=== PATIENT | male | born 1950 | race Caucasian/White ===

== ENCOUNTER → 2017-07-06 | Outpatient (CLI) | DX: M47.12 Other spondylosis with myelopathy, cervical region (principal) ==

== ENCOUNTER 2017-07-07 05:49 | Observation (INO) | payer OTHER ==
[~2017-07-07] VITALS: Ht 177.8 cm; Wt 73.9 kg
[~2017-07-07 05:49] MED LIST: AMBI10TA PO; ASPI1TAB57 PO; CYCL10TA PO; FENO54TA PO; FINA5TAB2 PO; GABA300C5 PO; HYDR-3583 PO; LISI20TA3 PO; LOVA40TA PO; MULT-65 PO; NAPR250T4 PO; OMEP20TA93 PO
[2017-07-07] MEDS ORDERED: LACTATED RINGER'S 1000 ML IV PRN (06:30)
[2017-07-07] MEDS ORDERED: POVIDONE IODINE 5% (ANTISEPSIS KIT) 4 APPLICATIONS EACH NARE PRN (06:30)
[2017-07-07] MEDS ORDERED: CHLORHEXIDINE GLUCONATE 2 % 1 PACK (2 CLOTHS) TOPICAL PRN (06:30)
[2017-07-07] MEDS ORDERED: METOPROLOL TARTRATE 25 MG TAB PO PRN (06:30)
[2017-07-07] MEDS ORDERED: SODIUM CHLORID 0.9% 500 ML IV PRN (06:30)
[2017-07-07] MEDS ORDERED: VANCOMYCIN 1,000 MG/NS 250 ML IV SCH ×2 (06:30)
[2017-07-07] MEDS ORDERED: DEXMEDETOMIDINE HCL 200 MCG/2 ML VIAL ONE (06:53)
[2017-07-07] MEDS ORDERED: ACETAMINOPHEN 1000 MG/100 ML 100 ML IV ONE (06:53)
[2017-07-07] MEDS ORDERED: HYDROmorphone HCL PF 2 MG/ML VIAL ONE (06:53)
[2017-07-07] MEDS ORDERED: KETAMINE HCL 500 MG/10 ML VIAL ONE (06:54)
[2017-07-07] MEDS ORDERED: STERILE WATER FOR INJECTION 20 ML VIAL ONE (06:54)
[2017-07-07] MEDS ORDERED: VANCOMYCIN HCL 1000 MG VIAL ONE (06:54)
[2017-07-07] MEDS ORDERED: GELFOAM SIZE 100 ONE (06:55)
[2017-07-07] MEDS ORDERED: THROMBIN (TOPICAL) 5,000 UNIT VIAL ONE ×2 (06:55→08:08)
[2017-07-07] MEDS ORDERED: BUPIVACAINE/EPINEPHRINE 0.5% PF 10 ML VIAL ONE (06:55)
[2017-07-07] MEDS ORDERED: SODIUM CHLORIDE 0.9% INJ 100 ML ONE (06:58)
[2017-07-07] MEDS ORDERED: PROPOFOL 500 MG/50 ML INJ 200 ML ONE (07:12)
[2017-07-07] MEDS ORDERED: DEXAMETHASONE SOD PHOS 20 MG/5 ML VIAL ONE (09:29)
[2017-07-07] MEDS ORDERED: DEXAMETHASONE SOD PHOS 4 MG/ML VIAL ONE (09:31)
[2017-07-07] MEDS ORDERED: SODIUM CHLOR 0.9% 1000 ML INJ 1,000 ML IV ONE (12:00)
[2017-07-07] MEDS ORDERED: SODIUM CHLOR 0.9% 250 ML INJ 500 ML IV ONE (12:00)
[2017-07-07] MEDS ORDERED: PROPOFOL 200 MG/20 ML AMP IV ONE (12:00)
[2017-07-07] MEDS ORDERED: SUCCINYLCHOLINE CHLORIDE 100 MG/5 ML SYRINGE IV PUSH ONE (12:00)
[2017-07-07] MEDS ORDERED: PHENYLEPH/NS 1000 MCG/10 ML SYR IV ONE (12:00)
[2017-07-07] MEDS ORDERED: PHENYLEPHRINE HCL 10 MG/ML VIAL IV ONE (12:00)
[2017-07-07] MEDS ORDERED: DEXAMETHASONE SOD PHOS 4 MG/ML VIAL IV ONE (12:00)
[2017-07-07] MEDS ORDERED: ONDANSETRON HCL 4 MG/2 ML VIAL IV PUSH ONE (12:00)
[2017-07-07] MEDS ORDERED: LIDOCAINE HCL 1% PF 5 ML SYRINGE OTHER ONE (12:00)
[2017-07-07] MEDS ORDERED: DO NOT ADM ANY ANTICOAGULANT DRUGS PRN (12:37)
[2017-07-07] MEDS ORDERED: ALUMINUM/MAGNESIUM/SIMETH 30 ML CUP PO PRN (12:45)
[2017-07-07] MEDS ORDERED: SODIUM CHLORIDE 0.9% FLUSH 10 ML FLUSH IV FLUSH PRN (12:45)
[2017-07-07] MEDS ORDERED: MIDAZOLAM HCL 2 MG/2 ML VIAL ONE (12:53)
--- NOTE | 2017-07-07 12:54 | PD.OP ---
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 Sequential compression devices were placed in supine position on a Mt table and all pressure points adequately padded. The head secured in a donut and anterior cervical region then shaved and prepped with Chloraprep and sterilely draped with Ioban along with the usual sterile draping. A transverse skin incision on the left side of the neck was then made after infiltrating the skin with 0.5% Marcaine with epinephrine solution extending down through the platysma. At the anterior border of the sternocleidomastoid further dissection was undertaken developing a plane between the carotid sheath laterally and the trachea esophagus medially. The prevertebral fascia was exposed and dissected out. The medial attachments of the longus colli muscles were detached and a self-retaining retractor used for exposure. There was significant prevertebral scar tissue noticed from the previous anterior cervical surgeries. The C6-7 disc space was localized with a marker in the disc space and using lateral fluoroscopy. Latty distraction screws 14 mm length were placed one in the C6 and one in the C7 body interbody distraction and exposure. There was significant disc degeneration with disc height collapse and anterior osteophytes noted at the C6- 7 level and the osteophytes were resected with a Leksell and annulus incised with a 15 blade and further dissection undertaken using microtechnique with microscope magnification. Diskectomy was undertaken with pituitaries and the endplates were also decorticated with curettes and drill bit. And more posteriorly there was disk osteophyte complex compressing the thecal sac along with a significant uncovertebral joint hypertrophy with foraminal stenosis which was decompressed along with removal of the posterior longitudinal ligaments at both levels. The foramen was decompressed bilaterally using a Kerrison's and palpation with a nerve hook, the exiting nerve roots were felt to be free. The area was then copiously irrigated. I then placed a Peek cage packed with local autograft bone at the C6-7 interspace under fluoroscopy guidance. Latty distraction pins were removed and the holes plugged with Gelfoam for hemostasis. In order to facilitate the fusion and provide stabilization, a Precision spine cervical plate was then placed with two 16 mm variable angle screws in the C6 body and two 16 mm fixed angle screws in the C7 body. The plate screw locking mechanism was then engaged. AP and lateral fluoroscopy confirmed good placement of the construct and the retractor was then removed. Muscular bleeding points were cauterized with bipolar cautery and Gelfoam was then also used for hemostasis which was removed. The platysma was then approximated using 3-0 Vicryl interrupted stitches and 3-0 Vicryl subcuticular stitch also placed in an interrupted fashion, and final skin closure was with Mastisol and Steri-Strips. Sterile dressing was then applied. The [place] collar was then placed. The patient was then extubated and taken to the recovery room. There are no intraoperative complications and all sponge and needle counts were correct at the end of procedure. Estimated blood loss was about 200 cc. The patient did undergo intraoperative neurologic monitoring which remained stable throughout the surgery. Joe Portillo MD July 07, 2017 12:54
--- NOTE | 2017-07-07 13:51 | RADRPT ---
EXAM DATE/TIME: 07/07/2017 09:29 [facility] COMPARISON: SPINE CERVICAL LATERAL ONLY, July 07, 2017, 9:29. INDICATIONS : Post-op C6-C7 anterior cervical fusion. MEDICAL HISTORY : None. SURGICAL HISTORY : Fusion, cervical. ENCOUNTER: Initial ACUITY: 1 day PAIN SCORE: Non-responsive. LOCATION: neck FINDINGS: 4 spot intraoperative fluoroscopic views of the cervical spine are obtained and demonstrate anterior cervical discectomy at C3-4 intervertebral fusion hardware at C4-5 and C5-6, and anterior cervical di scectomy plate and screw and intervertebral fusion hardware at C6-7. CONCLUSION: Post surgical changes. Kimo Gottlieb MD on July 07, 2017 at 13:48 Board Certified Radiologist. This report was verified electronically.
--- NOTE | 2017-07-07 13:52 | RADRPT ---
EXAM DATE/TIME: 07/07/2017 09:29 [facility] COMPARISON: SPINE CERVICAL LTD (AP&LAT), July 07, 2017, 9:29. INDICATIONS : C6-C7 anterior cervical fusion. Level localization. MEDICAL HISTORY : None. SURGICAL HISTORY : Fusion, cervical. ENCOUNTER: Initial ACUITY: 1 day PAIN SCORE: Non-responsive. LOCATION: neck FINDINGS: 2 spot intraoperative fluoroscopic views of the cervical spine are obtained and demonstrate ACDF hard laguerre and intervertebral fusion hardware at C3-4 as well as intervertebral fusion hardware at C4-5 and C5-6. A localization device projects anterior to the C6-7 disc space. CONCLUSION: Localization as above. Kimo Gottlieb MD on July 07, 2017 at 13:49 Board Certified Radiologist. This report was verified electronically.
[2017-07-07 14:00] LABS: AUTOMATED NEUTROPHIL # 7.8 TH/MM3 (1.8-7.7); BASOPHIL % 0.1 % (0.0-2.0); EOSINOPHIL % 0.1 % (0.0-4.0); HEMATOCRIT 39.5 % (39.0-51.0); HEMOGLOBIN 13.5 GM/DL (13.0-17.0); LYMPH % 4.6 % (9.0-44.0); LYMPHOCYTE # 0.4 TH/MM3 (1.0-4.8); MEAN CELL VOLUME 97.9 FL (80.0-100.0); MEAN CORPUSCULAR HEMOGLOBIN 33.6 PG (27.0-34.0); MEAN CORPUSCULAR HGB CONC 34.3 % (32.0-36.0); MEAN PLATELET VOLUME 7.2 FL (7.0-11.0); MONO % 1.4 % (0.0-8.0); MONOCYTE # 0.1 TH/MM3 (0-0.9); NEUT % 93.8 % (16.0-70.0); PLATELET COUNT 274 TH/MM3 (150-450); RED BLOOD COUNT 4.03 MIL/MM3 (4.50-5.90); RED CELL DISTRIBUTION WIDTH 13.2 % (11.6-17.2); WHITE BLOOD COUNT 8.4 TH/MM3 (4.0-11.0)
[2017-07-07] MEDS ORDERED: PROMETHAZINE INJ 25 MG/ML VIAL IM PRN (14:00)
[2017-07-07] MEDS: NS + KCL 20 MEQ INJ 1,000 ML IV SCH (14:00)
[2017-07-07] MEDS ORDERED: MAGNESIUM HYDROXIDE SUSP 30 ML CUP PO PRN (14:00)
[2017-07-07] MEDS ORDERED: POTASSIUM CHLOR 20 MEQ PREMIX 100 ML IV PRN (14:00)
[2017-07-07] MEDS ORDERED: ACETAMINOPHEN/HYDROcodone 325 MG/10 MG TAB PO PRN (14:00)
[2017-07-07] MEDS ORDERED: CALCIUM GLUCONATE INJ 1 GM in SODIUM CHLORIDE 0.9% INJ 100 ML IV PRN (14:00)
[2017-07-07] MEDS ORDERED: cloNIDine HCL 0.1 MG TAB PO PRN (14:00)
[2017-07-07] MEDS ORDERED: MAGNESIUM SULFATE INJ 2 GM in SODIUM CHLORIDE 0.9% INJ 100 ML IV PRN (14:00)
[2017-07-07] MEDS ORDERED: SENNOSIDES 8.6 MG TAB PO PRN (14:00)
[2017-07-07] MEDS ORDERED: BISACODYL 10 MG SUPP RECTAL PRN (14:00)
[2017-07-07] MEDS ORDERED: LACTULOSE SYRUP 20 GM/30 ML CUP PO PRN (14:00)
[2017-07-07] MEDS ORDERED: RESP: ALBUTEROL 2.5 MG/3 ML NEB (PRN) NEB (14:00)
[2017-07-07] MEDS ORDERED: MENTHOL LOZENGE BUCCAL PRN (14:00)
[2017-07-07] MEDS ORDERED: ONDANSETRON ODT 4 MG TAB PO PRN (14:00)
[2017-07-07] MEDS ORDERED: MORPHINE SULFATE 4 MG/ML INJ IV PUSH PRN (14:00)
[2017-07-07 14:28] LABS: BICARBONATE 23.6 MEQ/L (21.0-32.0); CALCIUM 7.8 MG/DL (8.5-10.1); CREATININE 0.73 MG/DL (0.60-1.30)
--- NOTE | 2017-07-07 14:39 | EKG ---
Date Performed: 07/07/2017 Time Performed: 07:54:29 PTAGE: 66 years EKG: Sinus rhythm LEFT ANTERIOR FASCICULAR BLOCK ABNORMAL ECG PREVIOUS TRACING : 03/18/2013 12.34 Since the previous tracing, no significant change noted DOCTOR: Abdifatah Velez Interpretating Date/Time 07/07/2017 14:34:59
[2017-07-07] MEDS: DEXAMETHASONE SOD PHOS 4 MG/ML VIAL IV PUSH SCH ×2 (15:00→19:35)
[2017-07-07 16:00] VITALS: BP 152/82; PULSE 80; RESP 18; TEMP 97.5; O2SAT 95
[2017-07-07 19:30] VITALS: BP 155/87; PULSE 98; RESP 18; TEMP 97.7; O2SAT 96
[2017-07-07] MEDS: GABAPENTIN 300 MG CAP PO SCH (19:35)
[2017-07-07] MEDS: CYCLOBENZAPRINE HCL 10 MG TAB PO SCH (19:35)
[2017-07-07] MEDS: SODIUM CHLORIDE 0.9% FLUSH 10 ML FLUSH IV FLUSH SCH (19:35)
[2017-07-07] MEDS: DOCUSATE SODIUM 50 MG/SENNA 8.6 MG TAB PO SCH (19:36)
[2017-07-07] MEDS: ACETAMINOPHEN/HYDROcodone 325 MG/10 MG TAB PO PRN ×2 (19:36→23:50)
[2017-07-07] MEDS: PANTOPRAZOLE SOD 20 MG DELAYED RELEASE TAB PO SCH (19:36)
[2017-07-07] MEDS ORDERED: ZOLPIDEM TARTRATE 10 MG TAB PO PRN (21:00)
[2017-07-07 23:55] VITALS: BP 144/81; PULSE 83; RESP 18; TEMP 97.9; O2SAT 96
[2017-07-08] VITALS (7 sets, daily range): BP systolic 122–144; BP diastolic 74–78; PULSE 83–94; RESP 18; TEMP 97.6–98; O2SAT 97–98
[2017-07-08] MEDS: NS + KCL 20 MEQ INJ 1,000 ML IV SCH ×2 (01:16→09:45)
[2017-07-08] MEDS: DEXAMETHASONE SOD PHOS 4 MG/ML VIAL IV PUSH SCH (02:33)
[2017-07-08] MEDS: ACETAMINOPHEN/HYDROcodone 325 MG/10 MG TAB PO PRN ×3 (04:20→14:02)
[2017-07-08] MEDS ORDERED: FINASTERIDE 5 MG TAB PO SCH (09:00)
[2017-07-08] MEDS ORDERED: PRAVASTATIN SOD 40 MG TAB PO SCH (09:00)
[2017-07-08] MEDS ORDERED: FENOFIBRATE 48 MG TAB PO SCH (09:00)
[2017-07-08] MEDS ORDERED: HYDROCHLOROTHIAZIDE 25 MG TAB PO SCH (09:00)
[2017-07-08] MEDS ORDERED: NON-FORMULARY DRUG (Fenofibrate 54 MG) PO SCH (09:00)
[2017-07-08] MEDS ORDERED: LISINOPRIL 20 MG TAB PO SCH (09:00)
[2017-07-08] MEDS: PANTOPRAZOLE SOD 20 MG DELAYED RELEASE TAB PO SCH (09:35)
[2017-07-08] MEDS: GABAPENTIN 300 MG CAP PO SCH (09:35)
[2017-07-08] MEDS: MULTIVITAMIN TAB PO SCH ×2 (09:36→09:40)
[2017-07-08] MEDS: DOCUSATE SODIUM 50 MG/SENNA 8.6 MG TAB PO SCH (09:36)
[2017-07-08] MEDS: CYCLOBENZAPRINE HCL 10 MG TAB PO SCH (09:36)
[2017-07-08] MEDS: SODIUM CHLORIDE 0.9% FLUSH 10 ML FLUSH IV FLUSH SCH (09:37)
[2017-07-08] MEDS ORDERED: PNEUMOCOCCAL POLYVALENT INJ 25 MCG/0.5 ML SYR IM ONE (10:00)
[2017-07-08] MEDS ORDERED: HYDR-3583 PO ×2 (14:25→14:32)
--- NOTE | 2017-07-08 14:39 | HHI.DS ---
Discharge Summary Admission Date July 07, 2017 at 12:47 Discharge Date: July 08, 2017 Admitting Diagnosis cervical radiculopathy/myelopathy (1) Degenerative cervical spinal stenosis ICD Code: M48.02 - Degenerative cervical spinal stenosis Status: Acute CBC/BMP: 07/07/17 1336 07/07/17 1336 Significant Findings Laboratory Tests Test 07/07/17 13:36 Red Blood Count 4.03 MIL/MM3 (4.50-5.90) Neutrophils (%) (Auto) 93.8 % (16.0-70.0) Lymphocytes (%) (Auto) 4.6 % (9.0-44.0) Neutrophils # (Auto) 7.8 TH/MM3 (1.8-7.7) Lymphocytes # (Auto) 0.4 TH/MM3 (1.0-4.8) Blood Urea Nitrogen 5 MG/DL (7-18) Random Glucose 118 MG/DL (74-106) Calcium Level 7.8 MG/DL (8.5-10.1) Hospital Course Patient admitted because of cervical radiculopathy/myelopathy. Underwent anterior cervical fusion. Postop patient did well. He reports his pain resolved. His numbness and tingling improved. His gait improved as well. Patient to be discharged on 07/08/17 Pt Condition on Discharge: Good Discharge Disposition: Discharge Home Discharge Instructions DIET: Follow Instructions for: Heart Healthy Diet, Pureed Diet ACTIVITIES You can perform: Weight Bearing As Denzel Activities to Avoid: Concussion Sports, Contact Sports, Prolonged Standing, Strenuous Activity, Driving Stevan Mari MD July 08, 2017 14:39
== END 2017-07-08 16:18 | disposition home or self-care (01) ==
LOC: HSDC 05:49 → HSDI 12:47 → N06B 15:22
PROVIDERS: ADMIT Neurological Surgery; ATTEND Neurological Surgery
DX: M48.02 Spinal stenosis, cervical region (principal); M54.12 Radiculopathy, cervical region; G95.20 Unspecified cord compression; M25.78 Osteophyte, vertebrae; I44.4 Left anterior fascicular block; I10 Essential (primary) hypertension; E78.5 Hyperlipidemia, unspecified; K21.9 Gastro-esophageal reflux disease without esophagitis; Z79.899 Other long term (current) drug therapy; Z23 Encounter for immunization
CPT/HCPCS: 00600; 20936; 22551; 22853; 72020; 72040; 76000; 80048; 85025; 90732; 93005; 94150; 96365; 96375; 96376; 97161; 97167; C1713; G0009; G0378; G8987; G8988; G8989; J0131; J0330; J0690; J1100; J1170; J2250; J2370; J2405; J3010; J3370; J3480; J7030; J7050; J7120; 90471